=== PATIENT | female | born 1970 | race Caucasian/White ===

== ENCOUNTER 2016-11-29 19:04 | Emergency (ER) | payer OTHER ==
[2016-11-29 19:37] VITALS: BP 104/66
--- NOTE | 2016-11-29 19:51 | UC ---
Respiratory Complaint HPI - HPI Summary HPI Summary: began as a uri over a week ago for the past week has had increasing chest burning with cough and deep breath, ear and sinus pressure - History of Current Complaint Chief Complaint: UCRespiratory Stated Complaint: EAR ACHE, AND CHEST CONGESTION Time Seen by Provider: 11/29/16 19:45 Hx Obtained From: Patient Hx Last Menstrual Period: 3 WEEKS AGO ?: No Onset/Duration: Gradual Onset, Lasting Days - 7, Still Present, Worse Since - past few days Timing: Constant Severity Initially: Mild Severity Currently: Moderate Character: Cough: Nonproductive Aggravating Factors: Deep Breaths Alleviating Factors: Nothing Associated Signs And Symptoms: Positive: Fever, Chills, Pleuritic Chest Pain, URI, Nasal Congestion, Sinus Discomfort - Allergies/Home Medications Allergies/Adverse Reactions: Allergies Allergy/AdvReac Type Severity Reaction Status Date / Time Aspirin Allergy Severe EPISTAXIS Verified 11/29/16 19:36 Penicillins Allergy Severe FACIAL Verified 11/29/16 19:36 SWELLING PMH/Surg Hx/FS Hx/Imm Hx Previously Healthy: No Endocrine History Of: Denies: Diabetes, Thyroid Disease Cardiovascular History Of: Denies: Hypertension, Pacemaker/ICD, Congestive Heart Failure Respiratory History Of: Reports: Asthma - A CHILD GI/ History Of: Denies: Kidney Stones, Renal Disease Neurological History Of: Denies: Seizures, Migraine Psychological History Of: Denies: Anxiety, Depression - Surgical History Surgical History: Yes Surgery Procedure, Year, and Place: 1970S, RIGHT KNEE- ARTHROSCOPY. 1992 TUBAL LIGATION, [facility] [place]. RIGHT SHOULDER SURGERY- 2013 DR. PANDEY. Hysterectomy - 06/23/2016 - Family History Known Family History: Positive: None Family History: no reported cardiac/dm/htn in family history - Social History Occupation: Employed Full-time Lives: With Family Alcohol Use: None Substance Use Type: None Smoking Status (MU): Never Smoked Tobacco - Immunization History Most Recent Influenza Vaccination: unknown Most Recent Tetanus Shot: unknown Most Recent Pneumonia Vaccination: never Review of Systems Constitutional: Chills, Fatigue Skin: Negative Eyes: Negative ENT: Ear Ache, Nasal Discharge Respiratory: Cough Cardiovascular: Chest Pain Gastrointestinal: Negative Genitourinary: Negative Motor: Negative Neurovascular: Negative Musculoskeletal: Negative Neurological: Negative Psychological: Negative All Other Systems Reviewed And Are Negative: Yes Physical Exam Triage Information Reviewed: Yes Appearance: Well-Appearing, No Pain Distress, Well-Nourished Vital Signs: Initial Vital Signs Temp 99.8 F 11/29/16 19:33 Pulse 66 11/29/16 19:33 Resp 16 11/29/16 19:33 BP 104/66 11/29/16 19:33 Pulse Ox 100 11/29/16 19:33 Eye Exam: Normal Eyes: Positive: Conjunctiva Clear ENT Exam: Other ENT: Positive: Normal ENT inspection, Hearing grossly normal, Pharynx normal, TMs normal. Negative: Tonsillar swelling, Tonsillar exudate, Trismus, Muffled/ hoarse voice Neck exam: Normal Neck: Positive: Supple, Nontender, No Lymphadenopathy Respiratory Exam: Normal Respiratory: Positive: Chest non-tender, No respiratory distress, No accessory muscle use, Wheezing Cardiovascular Exam: Normal Cardiovascular: Positive: RRR, No Murmur, Pulses Normal, Brisk Capillary Refill Musculoskeletal Exam: Normal Musculoskeletal: Positive: Strength Intact, ROM Intact, No Edema Neurological Exam: Normal Neurological: Positive: Alert Psychological Exam: Normal Skin Exam: Normal UC Diagnostic Evaluation - Laboratory O2 Sat by Pulse Oximetry: 100 Respiratory Course/Dx - Course Course Of Treatment: Prednisone, zithromax, albuterol, increase fluids, f/u with pcp re-check prn - Differential Dx/Diagnosis Differential Diagnosis/HQI/PQRI: Bronchitis, Laryngitis, Lower Resp Infection, Sinusitis Provider Diagnoses: Bronchitis with Bronchospasm Discharge - Discharge Plan Condition: Stable Disposition: HOME Prescriptions: Albuterol HFA INHALER* [Ventolin HFA Inhaler*] 2 puff INH Q6H PRN #1 mdi PRN Reason: cough Azithromycin TAB* [Zithromax TAB (Z-STEPHANE)*] 0 mg PO .Z-STEPHANE INSTRUCTIONS #6 tab predniSONE TAB* [Deltasone TAB*] 10 mg PO DAILY #20 tab Patient Education Materials: How to Use a Metered-Dose Inhaler (ED), Acute Bronchitis (ED), Bronchospasm (ED) Referrals: No Primary Care Phys,NOPCP [Primary Care Provider] - Additional Instructions: Follow up with your [facility] provider if symptoms worsen or fail to improve over the next 3-5 days
== END 2016-11-29 20:08 | disposition home or self-care (01) ==
LOC: UCEAST 19:04
DX: J20.9 Acute bronchitis, unspecified (principal); Z88.6 Allergy status to analgesic agent; Z88.0 Allergy status to penicillin
CPT/HCPCS: 99212; G0463

== ENCOUNTER 2016-12-10 19:33 | Emergency (ER) | payer OTHER ==
--- NOTE | 2016-12-10 21:49 | UC ---
Thang Parrish Anna, scribed for Cele Miranda DO on 12/10/16 at 2019 . Respiratory Complaint HPI - HPI Summary HPI Summary: Patient is a 46 y/o [place] [facility] [place] with a cough that began on 11/22, 18 days ago. She describes the severity of her pain as 5/10. She was [place] [facility] [place] and diagnosed with bronchitis. She was prescribed Z- Pack and Prednisone. She initially felt better, on the last day of the abx, but two days later, she began to feel sick again. She is now coughing more, an unproductive cough that keeps her awake at night. She felt a dull, constant mid- sternal chest pain when breathing. She experiences SOB, neck pain, sore throat, and eye pain. She feels as though she cant see well, as though she is seeing through a tunnel and cant focus her vision. She experiences some photophobia. The room is no spinning recently, but that does happen. Her symptoms are not alleviated by the use of an inhaler or Mucinex. Her history is significant for hypotension, and she has fainted as a result of this before. - History of Current Complaint Chief Complaint: UCRespiratory Stated Complaint: SOB,COUGH Time Seen by Provider: 12/10/16 20:04 Hx Obtained From: Patient Hx Last Menstrual Period: 3 WEEKS AGO Onset/Duration: Gradual Onset, Lasting Weeks, Still Present Severity Initially: Moderate Severity Currently: Moderate Pain Intensity: 5 Pain Scale Used: 0-10 Numeric Character: Cough: Nonproductive Aggravating Factors: Deep Breaths Alleviating Factors: Upright Position Associated Signs And Symptoms: Positive: Dyspnea, Pleuritic Chest Pain, Dizziness, URI, Nasal Congestion, Sinus Discomfort. Negative: Fever, Chills, Wheezing, Hemoptysis, Hoarseness - Risk Factors Cardiac Risk Factors: Negative - Allergies/Home Medications Allergies/Adverse Reactions: Allergies Allergy/AdvReac Type Severity Reaction Status Date / Time Aspirin Allergy Severe EPISTAXIS Verified 12/10/16 19:45 Penicillins Allergy Severe FACIAL Verified 12/10/16 19:45 SWELLING Home Medications: Home Medications Cholecalciferol TAB* [Vitamin D TAB*] 12/10/16 [History] PMH/Surg Hx/FS Hx/Imm Hx - Additional Past Medical History Additional PMH: Hypotension, slight anemia, orthostatic syncope Endocrine History Of: Denies: Diabetes, Thyroid Disease Cardiovascular History Of: Denies: Hypertension, Pacemaker/ICD, Congestive Heart Failure Respiratory History Of: Reports: Asthma - A CHILD GI/ History Of: Denies: Kidney Stones, Renal Disease Neurological History Of: Denies: Seizures, Migraine Psychological History Of: Denies: Anxiety, Depression - Surgical History Surgical History: Yes Surgery Procedure, Year, and Place: 1970S, RIGHT KNEE- ARTHROSCOPY. 1992 TUBAL LIGATION, [facility] [place]. RIGHT SHOULDER SURGERY- 2013 DR. PANDEY. Hysterectomy - 06/23/2016 - Family History Known Family History: Positive: Hypertension - Mother, Other - TIA in Mother Negative: Cardiac Disease, Diabetes - Social History Lives: With Family Alcohol Use: None Substance Use Type: None Smoking Status (MU): Never Smoked Tobacco - No household exposure - Immunization History Most Recent Influenza Vaccination: unknown Most Recent Tetanus Shot: unknown Most Recent Pneumonia Vaccination: never Review of Systems Constitutional: Negative Skin: Negative Eyes: Blurred Vision, Photophobia, Other - eye pain ENT: Negative, Sore Throat Respiratory: Shortness Of Breath, Cough Cardiovascular: Chest Pain Gastrointestinal: Negative Genitourinary: Negative Motor: Negative Neurovascular: Negative Musculoskeletal: Arthralgia - neck pain Neurological: Other - dizziness Psychological: Negative All Other Systems Reviewed And Are Negative: Yes Physical Exam Triage Information Reviewed: Yes Appearance: Well-Appearing, No Pain Distress, Well-Nourished Vital Signs: Initial Vital Signs Temp 99.2 F 12/10/16 19:39 Pulse 77 12/10/16 19:39 Resp 16 12/10/16 19:39 BP 98/43 12/10/16 19:39 Pulse Ox 100 12/10/16 19:39 Vital Signs Reviewed: Yes ENT: Positive: Hearing grossly normal, TMs normal. Negative: Tonsillar swelling , Tonsillar exudate, Trismus, Muffled/hoarse voice Neck: Positive: Supple, Nontender Respiratory: Positive: Lungs clear, Normal breath sounds, No respiratory distress, No accessory muscle use, Expiration - prolonged, bronchospasm Cardiovascular: Positive: RRR, No Murmur Musculoskeletal Exam: Normal Musculoskeletal: Positive: Strength Intact Neurological: Positive: Alert, Muscle Tone Normal, Other: - Visual field defects. Patient unable to follow finger to her left, and neither up nor down. Psychological Exam: Normal Psychological: Positive: Age Appropriate Behavior Skin Exam: Normal - warm, dry, normal color UC Physical Exam Vital Signs On Initial Exam: Initial Vitals Temp Pulse Resp BP Pulse Ox 99.2 F 77 16 98/43 100 12/10/16 19:39 12/10/16 19:39 12/10/16 19:39 12/10/16 19:39 12/10/16 19:39 - Neurological Exam Neurological: Sensory/Motor Intact, Alert, Oriented to Person Place, Time, CN Intact II-III - except for visual feild and eom deficit, Reflexes Intact, Cerebellar Dysfunction - wnl, Rhomberg - neg, Finger to Nose - wnl, Speech Normal UC Diagnostic Evaluation - Laboratory O2 Sat by Pulse Oximetry: 100 - EKG Cardiac Rate: NL - 20:47, 69 bpm, NSR, no ectopy, no S/T changes Respiratory Course/Dx - Differential Dx/Diagnosis Differential Diagnosis/HQI/PQRI: Asthma, Bronchitis, Influenza, Lower Resp Infection, Sinusitis, Other - cva, occular patholgy Provider Diagnoses: bronchitis, sinusitis, visual field defect - Physician Notification/Consults Discussed Patient Care With: Dr. Witt (ED physician) at 21:07. Agrees to accept patient at ED. Discharge - Discharge Plan Condition: Stable Disposition: TRANS HIGHER LVL OF CARE FAC The documentation as recorded by the Thang arnett Anna accurately reflects the service I personally performed and the decisions made by , Cele Miranda DO.
[2016-12-10 22:04] VITALS: BP 103/64
== END 2016-12-10 21:25 | disposition left against medical advice (07) ==
LOC: UCEAST 19:33
DX: J40 Bronchitis, not specified as acute or chronic (principal); J32.9 Chronic sinusitis, unspecified; H53.40 Unspecified visual field defects
CPT/HCPCS: 93005

== ENCOUNTER 2016-12-10 21:42 | Emergency (ER) | payer OTHER ==
[2016-12-10 21:59] VITALS: BP 113/67
[2016-12-10 22:43] LABS: Hematocrit 40 % (35-47); Hemoglobin 13.1 g/dl (12.0-16.0); Mean Corpuscular HGB Conc 33 g/dl (31-36); Mean Corpuscular Hemoglobin 28 pg (27-31); Mean Corpuscular Volume 83 fL (80-97); Mean Platelet Volume 7 um3 (7.4-10.4); Red Blood Count 4.77 10^6/ul (4.0-5.4); Red Cell Distribution Width 13 % (10.5-15); White Blood Count 7.8 10^3/ul (3.5-10.8)
--- NOTE | 2016-12-10 22:56 | RAD ---
INDICATION: Midsternal chest pain. Cough. COMPARISON: July 10, [address] TECHNIQUE: Dual energy PA and routine lateral views of the chest were obtained. REPORT: Elevated lung volumes. Rarefaction of the upper lung zone pulmonary markings. No alveolar consolidation, focal pulmonary lesion, pleural effusion, pneumothorax. The heart, pulmonary vasculature, and mediastinal contours are unremarkable. IMPRESSION: Stigmata of potential obstructive lung disease. No acute cardiopulmonary process evident.
[2016-12-10 23:00] LABS: Albumin 3.9 g/dL (3.2-5.2); BUN/Creatinine Ratio 16.9 (8-20); Calcium 8.9 mg/dL (8.6-10.3); EGFR African American 95.6 (>60); EGFR Non-African American 74.3 (>60); Globulin 2.2 g/dL (2-4); Potassium 3.5 mmol/L (3.5-5.0); Total Bilirubin 0.7 mg/dL (0.2-1.0); Total Protein 6.1 g/dL (6.4-8.9)
--- NOTE | 2017-01-02 19:58 | ED ---
Rick Parrish Karl, scribed for Jagdish Villanueva MD on 12/10/16 at 2209 . Respiratory - HPI Summary HPI Summary: Pt is a 46 y/o female that presents to the ED c/o respiratory problems. Pt stated she "can't breath right, my chest is burning" and that she has been sick with a cough since 11/22. Pt reported that she was seen 11/29/16 at [facility] and was diagnosed with bronchitis. Pt reported that her ears have been ringing and she has been having tunnel vision for the last 3 days in intermittent episodes lasting minutes. Pt also reported fever and CP which increases with coughing. Pt denied nausea and vomiting. - History of Current Complaint Chief Complaint: EDGeneral Stated Complaint: UCEAST XFER Time Seen by Provider: 12/10/16 22:00 Hx Obtained From: Patient Onset/Duration: Gradual Onset, Lasting Days, Still Present Timing: Intermittent Episodes Lasting: Initial Severity: Moderate Current Severity: Moderate Pain Intensity: 5 - CP Character: Cough (Nonproductive) Aggravating Factor(s): Nothing Alleviating Factor(s): Nothing Associated Signs and Symptoms: Fever, Chest Pain, Chest Pain with Cough - Allergy/Home Medications Allergies/Adverse Reactions: Allergies Allergy/AdvReac Type Severity Reaction Status Date / Time Aspirin Allergy Severe EPISTAXIS Verified 12/10/16 21:55 Penicillins Allergy Severe FACIAL Verified 12/10/16 21:55 SWELLING PMH/Surg Hx/FS Hx/Imm Hx Endocrine/Hematology History: Reports: Hx Anemia - ANEMIA Denies: Hx Bone Marrow Disease, Hx Diabetes, Hx Sickle Cell Disease, Hx Thyroid Disease Cardiovascular History: Denies: Hx Angina, Hx Congestive Heart Failure, Hx Hypertension, Hx Pacemaker /ICD, Other Cardiovascular Problems/Disorders Respiratory History: Reports: Hx Asthma - A CHILD Denies: Hx Sleep Apnea, Other Respiratory Problems/Disorders GI History: Reports: Hx Irritable Bowel - NEEDS MORE FIBER Denies: Hx Crohn's Disease, Other GI Disorders History: Denies: Hx Kidney Infection, Hx Kidney Stones, Hx Renal Disease, Other Problems/Disorders Musculoskeletal History: Denies: Hx Arthritis, Hx Bursitis, Hx Tendonitis - TENNIS ELBOW, RIGHT- STOPPED LAST YEAR, DR. PANDEY, Other Musculoskeletal History Sensory History: Reports: Hx Contacts or Glasses - GLASSES Denies: Hx Cataracts, Hx Glaucoma, Hx Hearing Aid Opthamlomology History: Reports: Hx Contacts or Glasses - GLASSES Denies: Hx Cataracts, Hx Glaucoma Neurological History: Denies: Hx Headaches, Hx Migraine, Hx Seizures, Other Neuro Impairments/ Disorders Psychiatric History: Denies: Hx Anxiety, Hx Depression - Surgical History Surgery Procedure, Year, and Place: 1970S, RIGHT KNEE- ARTHROSCOPY. 1992 TUBAL LIGATION, [facility]. RIGHT SHOULDER SURGERY- 2013 DR. PANDEY. Hysterectomy - 06/23/2016 Hx Anesthesia Reactions: No Infectious Disease History: No Infectious Disease History: Denies: Hx Clostridium Difficile, Hx Hepatitis, Hx Human Immunodeficiency Virus (HIV), Hx of Known/Suspected MRSA, Hx Shingles, Hx Tuberculosis, Traveled Outside the [place] in Last 30 Days - Family History Known Family History: Positive: Hypertension Family History: no reported cardiac/dm/htn in family history - Social History Alcohol Use: None Substance Use Type: Reports: None Smoking Status (MU): Never Smoked Tobacco Review of Systems Positive: Fever Eyes: Other - tunnel vision ENT: Other - tinnitus Positive: Chest Pain Positive: Cough Negative: Vomiting, Nausea Genitourinary: Negative Musculoskeletal: Negative Skin: Negative Neurological: Negative Psychological: Normal All Other Systems Reviewed And Are Negative: Yes Physical Exam Triage Information Reviewed: Yes Vital Signs On Initial Exam: Initial Vitals Temp Pulse Resp BP Pulse Ox 100.7 F 70 18 113/67 100 12/10/16 21:56 12/10/16 21:56 12/10/16 21:56 12/10/16 21:56 12/10/16 21:56 Vital Signs Reviewed: Yes Appearance: Positive: Well-Appearing, No Pain Distress Skin: Positive: Warm Eyes: Positive: BOGDAN ENT: Positive: Hearing grossly normal Neck: Positive: Supple Respiratory/Lung Sounds: Positive: Clear to Auscultation, Breath Sounds Present Cardiovascular: Positive: RRR Abdomen Description: Positive: Nontender, Soft Bowel Sounds: Positive: Present Musculoskeletal: Positive: Strength/ROM Intact Neurological: Positive: Sensory/Motor Intact, Alert, Oriented to Person Place, Time Diagnostics - Vital Signs Vital Signs Temp Pulse Resp BP Pulse Ox 12/10/16 21:56 100.7 F 70 18 113/67 100 - Laboratory Lab Results: Lab Results 12/10/16 12/10/16 Range/Units 22:30 22:30 WBC 7.8 (3.5-10.8) 10^3/ul RBC 4.77 (4.0-5.4) 10^6/ul Hgb 13.1 (12.0-16.0) g/dl Hct 40 (35-47) % MCV 83 (80-97) fL MCH 28 (27-31) pg MCHC 33 (31-36) g/dl RDW 13 (10.5-15) % Plt Count 227 (150-450) 10^3/ul MPV 7 L (7.4-10.4) um3 Neut % (Auto) 76.2 (38-83) % Lymph % (Auto) 8.8 L (25-47) % [place] % (Auto) 12.4 H (1-9) % Eos % (Auto) 2.2 (0-6) % Baso % (Auto) 0.4 (0-2) % Absolute Neuts (auto) 5.9 (1.5-7.7) 10^3/ul Absolute Lymphs (auto) 0.7 L (1.0-4.8) 10^3/ul Absolute Monos (auto) 1.0 H (0-0.8) 10^3/ul Absolute Eos (auto) 0.2 (0-0.6) 10^3/ul Absolute Basos (auto) 0 (0-0.2) 10^3/ul Absolute Nucleated RBC 0 10^3/ul Nucleated RBC % 0 Sodium 134 (133-145) mmol/L Potassium 3.5 (3.5-5.0) mmol/L Chloride 104 (101-111) mmol/L Carbon Dioxide 24 (22-32) mmol/L Anion Gap 6 (2-11) mmol/L BUN 14 (6-24) mg/dL Creatinine 0.83 (0.51-0.95) mg/dL Est GFR ( Amer) 95.6 (>60) Est GFR (Non-Af Amer) 74.3 (>60) BUN/Creatinine Ratio 16.9 (8-20) Glucose 87 (70-100) mg/dL Calcium 8.9 (8.6-10.3) mg/dL Total Bilirubin 0.70 (0.2-1.0) mg/dL AST 20 (13-39) U/L ALT 14 (7-52) U/L Alkaline Phosphatase 47 (34-104) U/L Total Protein 6.1 L (6.4-8.9) g/dL Albumin 3.9 (3.2-5.2) g/dL Globulin 2.2 (2-4) g/dL Albumin/Globulin Ratio 1.8 (1-3) Result Diagrams: 12/10/16 22:30 12/10/16 22:30 Lab Statement: Any lab studies that have been ordered have been reviewed, and results considered in the medical decision making process. - Radiology CXR Xray Interpretation: No Acute Changes Radiology Interpretation Completed By: Radiologist - IMPRESSION: Stigmata of potential obstructive lung disease. No acute cardiopulmonary process evident. Disposition - Diagnoses Provider Diagnoses: Chest pain Discharge - Discharge Plan Condition: Stable Disposition: HOME Patient Education Materials: Chest Pain (ED) Referrals: Stuart Barreto MD [Primary Care Provider] - Additional Instructions: Please follow up with your primary care provider. Return to the emergency department for changing or worsening symptoms. The documentation as recorded by the Rick arnett Karl accurately reflects the service I personally performed and the decisions made by , Jagdish Villanueva MD.
== END 2016-12-11 00:53 | disposition home or self-care (01) ==
LOC: ED 21:42
DX: R07.9 Chest pain, unspecified (principal); R50.9 Fever, unspecified; R05 Cough
CPT/HCPCS: 36415; 71020; 80053; 85025; 93005; 99282